=== PATIENT | female | born 1960 | race Caucasian/White ===

== ENCOUNTER 2017-05-29 17:14 | Emergency (ER) | payer OTHER ==
[~2017-05-29] VITALS: Ht 172.7 cm; Wt 73.0 kg
[~2017-05-29 17:14] MED LIST: ASPIR 8181 MG PO; FENOFIBRATE134 MG PO; FLAGYL500 MG PO; LEVOFLOXACIN; LIPITOR; LIPITOR20 MG PO; LOSARTAN POTASS25 MG PO; METOPROLOL TART50 MG PO; PANTOPRAZOLE SO40 MG PO; SUCRALFATE1 GM PO; XANAX1 MG PO; ZOLOFT100 MG
[2017-05-29 17:49] LABS: BILIRUBIN,URINE 1+ (NEGATIVE); KETONES,URINE NEGATIVE (NEGATIVE); LEUKOCYTE ESTERASE ,URINE TRACE (NEGATIVE); NITRITE,URINE NEGATIVE (NEGATIVE); URINE UROBILINOGEN 1 mg/dL (0.2 - 1)
[2017-05-29 18:25] LABS: PROTEIN,URINE DIPSTICK 1+ (NEGATIVE)
[2017-05-29 18:26] LABS: CLARITY,URINE HAZY (CLEAR); COLOR,URINE YELLOW (YELLOW)
[2017-05-29 18:29] LABS: EPITHELIAL CELLS,URINE MANY /LPF
[2017-05-29 18:30] LABS: WBC,URINE (MAN) 0-5 /HPF (0-5)
[2017-05-29 18:31] LABS: BACTERIA,URINE FEW /HPF
--- NOTE | 2017-05-29 19:04 | Diagnostic Imaging Report ---
PROCEDURE:L-SPINE COMPLETE COMPARISON:Patients [facility], DX, PELVIS AP 1-2 VIEWS, 08/07/2016, 7:59. INDICATIONS:LOWER BACK RIGHT SIDED PAIN FROM FALL FINDINGS: There are 5 lumbar-type vertebral bodies. The vertebral bodies are well-aligned without evidence of spondylolisthesis. There are no acute, displaced fractures, dislocations, lytic or blastic lesions. Vertebral body heights are maintained. Mild degenerative disc changes in the form of bridging osteophytes in the lower lumbosacral spine. Facet hypertrophy L5-S1. Bilateral oblique views show no spondylolysis. The sacroiliac joints are unremarkable. Atherosclerotic calcification of the abdominal aorta. CONCLUSION: 1. No acute abnormalities. 2. Mild degenerative disc and joint disease in the lower lumbosacral spine, as described.. Kirt Camarena M.D. Dictated by: Kirt Camarena M.D. on 05/29/2017 at 19:13 Electronically approved by: Kirt Camarena M.D. on 05/29/2017 at 19:13
--- NOTE | 2017-05-29 19:18 | Diagnostic Imaging Report ---
Exams: Head and Cervical Spine CTs without IV contrast History: Fall, pain Comparison studies: Multiple prior head CTs which date to 08/17/2008, most recent head CT of 08/07/2016 and brain MRI of 10/29/2016. Technique: Axial images were obtained from the brain and cervical spine. Coronal and sagittal images reconstructed from the axial data. Intravenous contrast: None Findings: Head CT: Scalp: Right occipital scalp hematoma. Bones: Nondisplaced fracture through the right occipital bone extends through the right squamosal segment to the right sigmoid-jugular junction. Fracture extends posterior to the right transverse sinus which which was otherwise patent on the previous CTA of 08/07/2016. This fracture was retrospectively present on the previous exam of 08/07/2016. Extra-axial spaces: Questionable trace subdural hemorrhage along the tentorium without mass effect. Brain sulci: Appropriate for age. Ventricles: Normal in size and configuration. No hydrocephalus. Parenchyma: Questionable subcentimeter contrecoup parenchymal hemorrhagic contusions versus streak artifact along the left anterior-inferior temporal lobe. No mass. No mass or acute cortical vascular insults. A few scattered hypodensities in the supratentorial white matter are nonspecific but most compatible with chronic small vessel ischemic changes. Sellar/suprasellar region: No abnormalities. Craniocervical junction: The foramen magnum is patent. No Chiari one malformation. Cervical spine CT: Fractures: None. Soft tissues: No gross acute abnormalities. Atlantoaxial articulation: Intact. Alignment: Strain cervical curvature may be positional. Cervicomedullary junction: No abnormalities. The foramen magnum is patent. Vertebrae: No infection or neoplasm. Postsurgical changes: Anterior cervical discectomy and fusion (ACDF) at C4-C5 and C5-C6 with anterior plate fixated via bilateral vertebral body screws at C4 and at C5. The left C4 vertebral body screw is fractured, unchanged. Remaining hardware is otherwise intact. Degenerative changes: Mildly degenerated disks at C2-C3, C3-C4 and at C7-T1. Moderately degenerated disc at C6-C7. No significant canal stenosis. Multilevel uncovertebral and facet arthrosis with mild foraminal stenosis on the left at C4-C5 and at C5-C6. Mildly prominent anterior bridging osteophytes indent the prevertebral soft tissues at C2-C3, C3-C4 and at C6-C7. Incidental findings: Emphysema with nonspecific scarring at the lung apices. Atherosclerotic calcifications in the carotid siphons, in the left common carotid artery and in the carotid bulbs. IMPRESSION: Head CT: 1. Acute right parieto-occipital scalp hematoma. 2. Questionable subcentimeter contrecoup parenchymal hemorrhagic contusions along the anteroinferior left temporal lobe and questionable trace subdural hemorrhage along the tentorium. Recommend follow-up head CT to document resolution and/or stability of findings. 3. Nondisplaced right occipital bone fracture, grossly unchanged from the more remote exam of 08/07/2016. 4. Stable mild generalized volume loss and mild chronic microvascular ischemic changes. Cervical spine CT: 1. No cervical spine fracture or subluxation. 2. Cannot exclude ligament, spinal cord and or vascular abnormalities on the basis of this examination. 3. No changes from the previous cervical spine CT of 08/07/2016. 4. Multilevel degenerative changes as described. 5. C4-C6 ACDF with solid interbody osseous fusion and chronically fractured left C4 vertebral body screw. Findings discussed with Kiana PASTOR at 7:04 PM on 05/29/2017. Signed by: Dr. Albin Alexander M.D. on 05/29/2017 7:14 PM
[2017-05-29 20:10] LABS: BASOPHILS % 0.2 % (0.0-1.0); EOSINOPHILS % 0.2 % (0.0-6.0); HEMATOCRIT 42.8 % (34.2-44.1); HEMOGLOBIN 14.1 g/dL (12.0-16.0); LYMPHOCYTES # (AUTO) 1.5 (1.0-3.2); LYMPHOCYTES % 11.9 % (18.0-39.1); MEAN CORPUSCULAR HGB CONC 32.9 g/dL (31-35); MEAN CORPUSCULAR VOLUME 94.1 fL (81-99); MONOCYTES # (AUTO) 0.6 (0.2-0.8); MONOCYTES % 4.4 % (4.4-11.3); NEUTROPHILS # (AUTO) 10.6 (2.1-6.9); NEUTROPHILS % 82.7 % (38.7-80.0); PLATELET COUNT 173 x10e3/uL (140-360); RED BLOOD COUNT 4.55 x10e6/uL (3.6-5.1); RED CELL DISTRIBUTION WIDTH 12.8 % (11.7-14.4)
[2017-05-29 20:16] LABS: INR 0.94; PARTIAL THROMBOPLASTIN TIME 23.6 seconds (23.8-35.5)
[2017-05-29 20:26] LABS: ALANINE AMINOTRANSFERASE 41 IU/L (0-55); ALBUMIN 4.1 g/dL (3.5-5.0); ALBUMIN/GLOBULIN RATIO 1.3 (0.8-2.0); ALKALINE PHOSPHATASE 55 IU/L (40-150); BLOOD UREA NITROGEN 18 mg/dL (7-26); BUN/CREATININE RATIO 18 (6-25); CALCIUM 8.5 mg/dL (8.4-10.2); CARBON DIOXIDE 22 mmol/L (22-29); CHLORIDE 105 mmol/L (98-107); CREATINE KINASE 81 IU/L (29-168); CREATININE, SERUM 0.98 mg/dL (0.57-1.11); EST GLOMERULAR FILTRATION RATE 58 ML/MIN (60-); GLUCOSE 136 mg/dL (74-118); SODIUM 139 mmol/L (136-145)
[2017-05-29 20:32] LABS: TROPONIN I 0.023 ng/mL (0-0.300)
[2017-05-29 23:05] VITALS: BP 144/76
== END 2017-05-29 23:00 | disposition short-term general hospital (02) ==
LOC: ER 17:14
DX: R55 Syncope and collapse (principal); S06.5X0A Traumatic subdural hemorrhage without loss of consciousness, initial encounter; R51 Headache; R53.1 Weakness; W01.0XXA Fall on same level from slipping, tripping and stumbling without subsequent striking against object, initial encounter; I10 Essential (primary) hypertension; F32.9 Major depressive disorder, single episode, unspecified; F41.9 Anxiety disorder, unspecified; Z98.1 Arthrodesis status; F17.210 Nicotine dependence, cigarettes, uncomplicated
CPT/HCPCS: 36415; 70450; 72110; 72125; 80053; 81001; 82550; 82553; 84484; 84702; 85025; 85610; 85730; 93005; 99285